=== PATIENT | male | born 1960 | race Two or more races ===

== ENCOUNTER 2017-05-05 22:10 | Emergency (ER) | payer SELFPAY ==
--- NOTE | 2017-05-05 22:20 | NUR ---
CALLED NO ANSWER IN [place]
--- NOTE | 2017-05-05 22:57 | NUR ---
CALLED NO ANSWER IN [place]
== END 2017-05-05 22:58 | disposition left against medical advice (07) ==
LOC: ER 22:12
DX: Z53.21 Procedure and treatment not carried out due to patient leaving prior to being seen by health care provider (principal)